=== PATIENT | female | born 1950 | race Hispanic/Latino ===

== ENCOUNTER → 2018-02-02 | Day surgery (SDC) | payer MEDICARE ==
[~2018-02-02] MED LIST: ANASTROZOLE1 MG PO; CANCER MEDICATION PO; FENTANYL CITRATE/PF 100MCG/2 ML INJ ONE; GLIPIZIDE10 MG PO; LANTUS100 UNITS/ INJ; LISINOPRIL2.5 MG PO; METFORMIN HCL1000 MG PO; MIDAZOLAM HCL 2 MG/2 ML VIAL ONE; SIMVASTATIN PO
== END | disposition home or self-care (01) ==
LOC: OR 10:31
PROVIDERS: ATTEND Ophthalmology
DX: H25.11 Age-related nuclear cataract, right eye (principal); I10 Essential (primary) hypertension; E11.9 Type 2 diabetes mellitus without complications; Z79.4 Long term (current) use of insulin; C50.911 Malignant neoplasm of unspecified site of right female breast; F39 Unspecified mood [affective] disorder; F41.9 Anxiety disorder, unspecified; G47.33 Obstructive sleep apnea (adult) (pediatric); Z88.5 Allergy status to narcotic agent
CPT/HCPCS: 36415; 66984; 82948; J2250

== ENCOUNTER → 2018-02-16 | Day surgery (SDC) | payer MEDICARE ==
[~2018-02-16] MED LIST changes: +INSULIN REGULAR, HUMAN 100 UNIT/1 ML 3ML VIAL ONE; +OR PHACO EYE KIT ONE; +PREOP PHACO EYE KIT ONE
== END | disposition home or self-care (01) ==
LOC: OR 13:37
PROVIDERS: ATTEND Ophthalmology
DX: H25.12 Age-related nuclear cataract, left eye (principal); C50.919 Malignant neoplasm of unspecified site of unspecified female breast; C55 Malignant neoplasm of uterus, part unspecified; I10 Essential (primary) hypertension; G47.33 Obstructive sleep apnea (adult) (pediatric); E11.9 Type 2 diabetes mellitus without complications; F41.9 Anxiety disorder, unspecified; F32.9 Major depressive disorder, single episode, unspecified; Z88.5 Allergy status to narcotic agent
CPT/HCPCS: 36415; 66984; 82948; J2250; V2632